=== PATIENT | male | born 1980 | race American Indian/Alaskan Native ===

== ENCOUNTER 2016-07-11 01:09 | Emergency (ER) | payer SELFPAY ==
[2016-07-11 02:14] LABS: Anion Gap 20 mmol/L; BUN/Creatinine Ratio 13.33; Blood Urea Nitrogen 16 mg/dL (9-20); Calcium 9.3 mg/dL (8.4-10.2); Carbon Dioxide 23 mmol/L (22-30); Chloride 101.6 mmol/L (98-107); Glucose 100 mg/dL (75-100); Potassium 4.3 mmol/L (3.6-5.0); Sodium 140 mmol/L (137-145)
[2016-07-11 02:39] LABS: Bilirubin,Urine NEG (Negative); Blood,Urine NEG (Negative); Ketones,Urine NEG (Negative); Leukocyte Esterase,Urine LG (Negative); Nitrite,Urine NEG (Negative); Protein,Urine <15 mg/dL mg/dL (Negative); Urobilinogen,Urine < 2.0 mg/dL (<2.0)
[2016-07-11 02:46] LABS: Basophils % (Auto) 0.1 % (0.0-1.8); Eosinophils % (Auto) 0.2 % (0.0-4.3); Hematocrit 40.9 % (35.5-45.6); Hemoglobin 12.9 gm/dl (11.8-15.2); Mean Corpuscular HGB Conc 32 % (32-34); Platelet Count 204 K/mm3 (140-440); Red Blood Count 6.17 M/mm3 (3.65-5.03); Red Cell Distribution Width 15.8 % (13.2-15.2); White Blood Count 6.4 K/mm3 (4.5-11.0)
[2016-07-11 02:48] LABS: Mean Corpuscular Hemoglobin 21 pg (28-32); Mean Corpuscular Volume 66 fl (84-94)
[2016-07-11] MEDS ORDERED: MACROBID PO ONE (06:15)
--- NOTE | 2016-07-11 06:35 | Emergency Department Report ---
HPI - General Chief Complaint: High BP Time Seen by Provider: 07/11/16 02:43 - HPI HPI: This is a 35-year-old Afro[place] male presents to the emergency department with complaint of feeling dizzy with certain changes in position or sharp movements. It is more likely room is spinning then it is the feeling of passing out. He denies any headache, vision change, blurry vision, slurred speech, nausea, vomiting, chest pain, shortness of breath. The patient does not have any past medical history but also does not follow with any physician. He did not take anything for symptoms prior to presentation. He is a tobacco smoker but denies any illicit drug use. He drove himself in to be seen today. No recent travel or sick contacts at home. ED Past Medical Hx - Past Medical History Previous Medical History?: No - Surgical History Past Surgical History?: No - Social History Smoking Status: Current Every Day Smoker Substance Use Type: Alcohol, Marijuana - Medications Home Medications: Home Medications Medication Instructions Recorded Confirmed Last Taken Type Meclizine [Antivert] 12.5 mg PO TID PRN #16 tablet 07/11/16 Unknown Rx Nitrofurantoin [place]/M-Cryst 100 mg PO BID #14 capsule 07/11/16 Unknown Rx [Macrobid CAP] ED Review of Systems ROS: Stated complaint: POSS HIGH BP Other details as noted in HPI Comment: All other systems reviewed and negative Constitutional: denies: chills, fever Eyes: denies: eye pain, eye discharge, vision change ENT: denies: ear pain, throat pain Respiratory: denies: cough, shortness of breath, wheezing Cardiovascular: denies: chest pain, palpitations Gastrointestinal: denies: abdominal pain, nausea, diarrhea Genitourinary: denies: urgency, dysuria Musculoskeletal: denies: back pain, joint swelling, arthralgia Skin: denies: rash, lesions Neurological: vertigo. denies: headache, weakness, paresthesias Physical Exam - Physical Exam Vital Signs: Vital Signs 07/11/16 07/11/16 07/11/16 01:21 01:54 02:00 Temperature 98.1 F Pulse Rate 108 H 95 H 85 Respiratory 18 32 H 17 Rate Blood Pressure 156/121 144/99 O2 Sat by Pulse 96 98 Oximetry 07/11/16 07/11/16 07/11/16 02:10 02:20 02:30 Temperature Pulse Rate 87 89 82 Respiratory 24 13 22 Rate Blood Pressure 137/98 134/94 134/94 O2 Sat by Pulse 99 99 100 Oximetry 07/11/16 07/11/16 07/11/16 02:40 02:50 03:00 Temperature Pulse Rate 82 91 H 84 Respiratory 24 15 23 Rate Blood Pressure 154/96 153/105 O2 Sat by Pulse 99 100 99 Oximetry 07/11/16 07/11/16 07/11/16 03:10 03:20 03:30 Temperature Pulse Rate 103 H 76 76 Respiratory 36 H Rate Blood Pressure 134/87 148/106 142/101 O2 Sat by Pulse 100 100 99 Oximetry 07/11/16 07/11/16 07/11/16 03:40 03:50 04:00 Temperature Pulse Rate 75 78 85 Respiratory Rate Blood Pressure 142/101 143/93 146/108 O2 Sat by Pulse 99 99 99 Oximetry 07/11/16 07/11/16 07/11/16 04:12 04:20 04:30 Temperature Pulse Rate 76 Respiratory 20 24 Rate Blood Pressure 146/108 137/105 140/95 O2 Sat by Pulse 99 97 100 Oximetry 07/11/16 07/11/16 07/11/16 04:40 04:50 05:00 Temperature Pulse Rate 65 60 Respiratory Rate Blood Pressure 140/95 146/108 129/84 O2 Sat by Pulse 98 99 100 Oximetry 07/11/16 07/11/16 07/11/16 05:10 05:20 05:30 Temperature Pulse Rate 65 64 Respiratory Rate Blood Pressure 129/84 131/91 129/87 O2 Sat by Pulse 98 98 100 Oximetry 07/11/16 07/11/16 07/11/16 05:40 05:50 06:00 Temperature Pulse Rate 64 61 65 Respiratory Rate Blood Pressure 129/87 128/89 129/97 O2 Sat by Pulse 99 100 100 Oximetry Physical Exam: GENERAL: The patient is well-developed well-nourished. HEENT: Normocephalic. Atraumatic. Extraocular motions are intact. Patient has moist mucous membranes. Pupils equal reactive to light bilaterally. There is fatigable horizontal nystagmus. NECK: Supple. Trachea is midline. CHEST/LUNGS: Clear to auscultation. There is no respiratory distress noted. HEART/CARDIOVASCULAR: Regular. There is no tachycardia. There is no gallop rub or murmur. ABDOMEN: Abdomen is soft, nontender. Patient has normal bowel sounds. There is no abdominal distention. SKIN: There is no rash. There is no edema. There is no diaphoresis. NEURO: The patient is awake, alert, and oriented. The patient is cooperative. The patient has no focal neurologic deficits. The patient has normal speech. Cranial nerves II through XII grossly intact. No pronator drift. MUSCULOSKELETAL: There is no tenderness or deformity. There is no limitation range of motion. There is no evidence of acute injury. Muscle strength 5 out of 5 for upper and lower extremities bilaterally. ED Course Vital Signs 07/11/16 07/11/16 07/11/16 01:21 01:54 02:00 Temperature 98.1 F Pulse Rate 108 H 95 H 85 Respiratory 18 32 H 17 Rate Blood Pressure 156/121 144/99 O2 Sat by Pulse 96 98 Oximetry 07/11/16 07/11/16 07/11/16 02:10 02:20 02:30 Temperature Pulse Rate 87 89 82 Respiratory 24 13 22 Rate Blood Pressure 137/98 134/94 134/94 O2 Sat by Pulse 99 99 100 Oximetry 07/11/16 07/11/16 07/11/16 02:40 02:50 03:00 Temperature Pulse Rate 82 91 H 84 Respiratory 24 15 23 Rate Blood Pressure 154/96 153/105 O2 Sat by Pulse 99 100 99 Oximetry 07/11/16 07/11/16 07/11/16 03:10 03:20 03:30 Temperature Pulse Rate 103 H 76 76 Respiratory 36 H Rate Blood Pressure 134/87 148/106 142/101 O2 Sat by Pulse 100 100 99 Oximetry 07/11/16 07/11/16 07/11/16 03:40 03:50 04:00 Temperature Pulse Rate 75 78 85 Respiratory Rate Blood Pressure 142/101 143/93 146/108 O2 Sat by Pulse 99 99 99 Oximetry 07/11/16 07/11/16 07/11/16 04:12 04:20 04:30 Temperature Pulse Rate 76 Respiratory 20 24 Rate Blood Pressure 146/108 137/105 140/95 O2 Sat by Pulse 99 97 100 Oximetry 07/11/16 07/11/16 07/11/16 04:40 04:50 05:00 Temperature Pulse Rate 65 60 Respiratory Rate Blood Pressure 140/95 146/108 129/84 O2 Sat by Pulse 98 99 100 Oximetry 07/11/16 07/11/16 07/11/16 05:10 05:20 05:30 Temperature Pulse Rate 65 64 Respiratory Rate Blood Pressure 129/84 131/91 129/87 O2 Sat by Pulse 98 98 100 Oximetry 07/11/16 07/11/16 07/11/16 05:40 05:50 06:00 Temperature Pulse Rate 64 61 65 Respiratory Rate Blood Pressure 129/87 128/89 129/97 O2 Sat by Pulse 99 100 100 Oximetry ED Medical Decision Making - Lab Data Result diagrams: 07/11/16 01:38 07/11/16 01:38 - Medical Decision Making 35-year-old male presents with some vertigo-like symptoms that occur only with sharp movements and/or quick changes in position. He has no focal, motor or sensory deficits and his cranial nerves are intact. Patient resting comfortably upon history and physical. There is some fatigable horizontal nystagmus. Normal; heart and lungs to auscultation. He has full muscle strength to all extremities. Patient's labs show a urinary tract infection. The patient says that there is no recent sexual activity and therefore his low suspicion for STD but he will be treated for a urinary tract infection. The rest of his labs are unremarkable and do not show any etiology of his symptoms. Patient was offered first dose of Antivert here but like to be able to drive himself home so he will take it once he is able to drive home, which is nearby, and the patient denies any significant symptoms at this time. He will be given multiple primary care doctor referrals and encouraged to return to the ER with any worsening of symptoms or any acute distress. - Differential Diagnosis vertigo, Mnire's, TIA, UTI, urethritis Critical Care Time: No Critical care attestation.: If time is entered above; I have spent that time in minutes in the direct care of this critically ill patient, excluding procedure time. ED Disposition Clinical Impression: Vertigo UTI (urinary tract infection) Qualifiers: Urinary tract infection type: acute cystitis Hematuria presence: without hematuria Qualified Code(s): N30.00 - Acute cystitis without hematuria Disposition: DISCHARGED TO HOME OR SELFCARE Is pt being admited?: No Condition: Good Instructions: Urinary Tract Infection in Men (ED), Vertigo (ED) Additional Instructions: Please return to the emergency department with any worsening of your symptoms or any acute distress including any slurred speech, vision change, trouble with walking or any neurological deficits. I given you multiple referrals for primary care physicians in local clinics. Take the antibiotics as prescribed. The vertigo medication, Antivert, is slightly sedating. Therefore this medication should not be taken prior to driving, working, being responsible for children and it should not be mixed with alcohol. Prescriptions: Meclizine [Antivert] 12.5 mg PO TID PRN #16 tablet PRN Reason: Vertigo Nitrofurantoin [place]/M-Cryst [Macrobid CAP] 100 mg PO BID #14 capsule Ref[facility]: [facility] [Outside[facility] - 3-5 Days [facility] [Outside] - 3-5 Days [facility] [Outside] - 3-5 Days Time of Disposition: 06:36
[2016-07-11 06:49] VITALS: BP 134/97
== END 2016-07-11 06:49 | disposition home or self-care (01) ==
LOC: ED 01:09
DX: R42 Dizziness and giddiness (principal); N30.00 Acute cystitis without hematuria; F17.200 Nicotine dependence, unspecified, uncomplicated; F12.10 Cannabis abuse, uncomplicated
CPT/HCPCS: 36415; 80048; 81001; 82962; 85025; 93005; 93010; 99283